=== PATIENT | male | born 1965 | race Caucasian/White ===

== ENCOUNTER 2019-04-19 09:47 | Outpatient (CLI) | payer BC ==
--- NOTE | 2019-04-19 10:10 | ULT ---
US Renal Bilateral STANDARD HISTORY: Chronic renal disease COMPARISON: None. FINDINGS: The right kidney measures 10.2 cm in length and the left kidney measures 11.4 cm in length. No focal mass or hydronephrosis is seen on either side. Cortical echogenicity and thickness is normal. No shadowing calculi are identified. The urinary bladder is unremarkable. Bilateral ureteral jets are visualized. IMPRESSION: Unremarkable exam.
== END 2019-04-19 09:48 | disposition home or self-care (01) ==
LOC: BICULT 09:47
PROVIDERS: ATTEND Internal Medicine Nephrology
DX: N18.3 Chronic kidney disease, stage 3 (moderate) (principal)
CPT/HCPCS: 36415; 76770; 80048; 81001

== ENCOUNTER 2024-02-05 18:35 | Inpatient (IN) | payer BC ==
[2024-02-05] MEDS ORDERED: Furosemide 40 MG (4 mL) VIAL ONE (19:43)
[2024-02-05 19:50] LABS: #Basophils 0.08 10x3/uL (0.0-0.2); %Eosinophils 1.1 % (0.0-10.0); %Lymphocytes 8.4 % (21.0-51.0); %Monocytes 8.4 % (0.0-10.0); %Neutrophils 80.7 % (42.0-75.0); Hematocrit 34.5 % (42.0-52.0); Hemoglobin 11.1 g/dL (14.0-18.0); Mean Corpuscular HGB CONC 32.2 g/dL (32.0-36.0); Mean Corpuscular Hemoglobin 28.8 pg (27.0-31.0); Mean Corpuscular Volume 89.4 fL (78.0-98.0); Mean Platelet Volume 11.5 fL (7.4-10.4); Platelet Count 190 10x3/uL (130-400); RBC Distribution Width 15.1 % (11.5-14.5); Red Blood Cell (RBC) Count 3.86 mill/uL (4.70-6.10)
[2024-02-05 20:13] LABS: Digoxin 0.48 ng/mL (0.8-2.0)
[2024-02-05 20:14] LABS: ALT (SGPT) 42 U/L (8-55); AST (SGOT) 28 U/L (5-34); Albumin 3.2 g/dL (3.5-5.0); Alkaline Phosphatase 146 U/L (40-110); Anion Gap 15 mmol/L (10-20); BUN (Urea Nitrogen) 21 mg/dL (8.4-25.7); Bilirubin, Total 0.6 mg/dL (0.2-1.2); Calc. Creatinine Clearance 0 mL/min (70-130); Calcium 8.6 mg/dL (7.8-10.44); Carbon Dioxide 24 mmol/L (22-29); Chloride 108 mmol/L (98-107); Estimated GFR 39; Globulin 3.8 g/dL (2.4-3.5); Glucose 179 mg/dL (70-105); Potassium 4.3 mmol/L (3.5-5.1); Sodium 143 mmol/L (136-145)
[2024-02-05 20:19] LABS: Troponin I 0.067 ng/mL (< 0.028)
[2024-02-05] MEDS ORDERED: Digoxin 0.5 MG/2 ML AMP ONE (20:36)
[2024-02-05] MEDS ORDERED: Ondansetron PF 4 MG/2 ML Vial IVP PRN (22:15)
[2024-02-05] MEDS ORDERED: Ondansetron ODT 4 MG TAB SL PRN (22:15)
[2024-02-05] MEDS ORDERED: Acetaminophen 325 MG TAB PO PRN (22:15)
[2024-02-05 23:31] LABS: Troponin I 0.083 ng/mL (< 0.028)
[2024-02-06 01:22] VITALS: BMI 28.3
[2024-02-06 02:56] LABS: Troponin I 0.101 ng/mL (< 0.028)
[2024-02-06 04:07] LABS: Magnesium 2.2 mg/dL (1.6-2.6)
[2024-02-06] MEDS ORDERED: Furosemide 40 MG (4 mL) VIAL ONE ×2 (06:28→13:51)
[2024-02-06] MEDS: Furosemide 40 MG (4 mL) VIAL SLOW IVP SCH (06:43)
[2024-02-06] MEDS ORDERED: Dextrose 5% in Water 1,000 ML IV PRN (11:05)
[2024-02-06] MEDS ORDERED: Glucagon 1 MG/ML KIT IM PRN (11:05)
[2024-02-06] MEDS ORDERED: Dextrose 50% Abboject 50 ML SYRINGE SLOW IVP PRN (11:05)
[2024-02-06] MEDS: Rivaroxaban 10 MG TAB PO SCH (16:46)
[2024-02-06] MEDS: Insulin Lispro 100 UNIT/ML 10 ML VIAL SC PRN (17:23)
[2024-02-06] MEDS: Atorvastatin Calcium 10 MG TAB PO SCH (20:43)
[2024-02-06] MEDS: Carvedilol 3.125 MG TAB PO SCH (20:43)
[2024-02-06] MEDS: Saxagliptin 2.5 MG TAB PO SCH (20:43)
[2024-02-07 06:13] LABS: #Basophils 0.06 10x3/uL (0.0-0.2); %Basophils 0.8 % (0.0-1.0); %Eosinophils 1.7 % (0.0-10.0); %Lymphocytes 9.3 % (21.0-51.0); %Monocytes 12.1 % (0.0-10.0); Hematocrit 31.2 % (42.0-52.0); Hemoglobin 9.9 g/dL (14.0-18.0); Mean Corpuscular HGB CONC 31.7 g/dL (32.0-36.0); Mean Corpuscular Hemoglobin 28.6 pg (27.0-31.0); Mean Corpuscular Volume 90.2 fL (78.0-98.0); Mean Platelet Volume 12.1 fL (7.4-10.4); Platelet Count 163 10x3/uL (130-400); RBC Distribution Width 14.9 % (11.5-14.5); Red Blood Cell (RBC) Count 3.46 mill/uL (4.70-6.10)
[2024-02-07 06:50] LABS: Anion Gap 12 mmol/L (10-20); BUN (Urea Nitrogen) 25 mg/dL (8.4-25.7); Calc. Creatinine Clearance 50 mL/min (70-130); Calcium 8.4 mg/dL (7.8-10.44); Carbon Dioxide 28 mmol/L (22-29); Chloride 104 mmol/L (98-107); Estimated GFR 42; Glucose 152 mg/dL (70-105); Potassium 4.1 mmol/L (3.5-5.1); Sodium 140 mmol/L (136-145)
[2024-02-07] MEDS: Digoxin 0.125 MG TAB PO SCH (08:02)
[2024-02-07] MEDS: Aspirin 81 mg Enteric Coated Tablet PO SCH (08:03)
[2024-02-07] MEDS ORDERED: FLU (Fluarix Triv) TS24-25(6MOS UP)/PF 45 MCG/0.5 ML Syringe IM ONE (09:00)
[2024-02-08 04:50] LABS: #Basophils 0.05 10x3/uL (0.0-0.2); %Basophils 0.9 % (0.0-1.0); %Eosinophils 2.4 % (0.0-10.0); %Monocytes 11.6 % (0.0-10.0); %Neutrophils 71.9 % (42.0-75.0); Hematocrit 32.8 % (42.0-52.0); Hemoglobin 10.6 g/dL (14.0-18.0); Mean Corpuscular HGB CONC 32.3 g/dL (32.0-36.0); Mean Corpuscular Hemoglobin 28.5 pg (27.0-31.0); Mean Corpuscular Volume 88.2 fL (78.0-98.0); Mean Platelet Volume 12.5 fL (7.4-10.4); Platelet Count 174 10x3/uL (130-400); RBC Distribution Width 14.9 % (11.5-14.5); Red Blood Cell (RBC) Count 3.72 mill/uL (4.70-6.10)
[2024-02-08 05:03] LABS: Anion Gap 11 mmol/L (10-20); BUN (Urea Nitrogen) 29 mg/dL (8.4-25.7); Calc. Creatinine Clearance 47 mL/min (70-130); Calcium 8.9 mg/dL (7.8-10.44); Carbon Dioxide 29 mmol/L (22-29); Chloride 102 mmol/L (98-107); Estimated GFR 38; Glucose 154 mg/dL (70-105); Potassium 4.3 mmol/L (3.5-5.1); Sodium 138 mmol/L (136-145)
[2024-02-08 05:04] LABS: Digoxin 1.43 ng/mL (0.8-2.0)
[2024-02-08] MEDS: Lisinopril 2.5 MG TAB PO SCH (08:24)
[2024-02-08] MEDS ORDERED: Rivaroxaban 15 MG TAB PO SCH (17:00)
[2024-02-08] MEDS: Rivaroxaban 15 MG TAB PO SCH (17:31)
[2024-02-09 05:21] LABS: #Basophils 0.04 10x3/uL (0.0-0.2); %Basophils 0.8 % (0.0-1.0); %Eosinophils 2.5 % (0.0-10.0); %Lymphocytes 11.6 % (21.0-51.0); %Monocytes 14.1 % (0.0-10.0); %Neutrophils 70.8 % (42.0-75.0); Hematocrit 30.4 % (42.0-52.0); Hemoglobin 9.8 g/dL (14.0-18.0); Mean Corpuscular HGB CONC 32.2 g/dL (32.0-36.0); Mean Corpuscular Hemoglobin 28.6 pg (27.0-31.0); Mean Corpuscular Volume 88.6 fL (78.0-98.0); Mean Platelet Volume 12.5 fL (7.4-10.4); Platelet Count 169 10x3/uL (130-400); RBC Distribution Width 14.6 % (11.5-14.5); Red Blood Cell (RBC) Count 3.43 mill/uL (4.70-6.10)
[2024-02-09 06:14] LABS: Anion Gap 13 mmol/L (10-20); BUN (Urea Nitrogen) 35 mg/dL (8.4-25.7); Calc. Creatinine Clearance 47 mL/min (70-130); Calcium 8.2 mg/dL (7.8-10.44); Carbon Dioxide 28 mmol/L (22-29); Chloride 101 mmol/L (98-107); Estimated GFR 39; Glucose 187 mg/dL (70-105); Potassium 3.8 mmol/L (3.5-5.1); Sodium 138 mmol/L (136-145)
[2024-02-09 12:32] VITALS: BP 136/64; TEMP 97.3
== END 2024-02-09 13:20 | disposition home or self-care (01) | DRG 291 ==
LOC: ERS 18:35 → ERHOLD 22:10 → 2NO 02-06 16:14
PROVIDERS: ADMIT Student in an Organized Health Care Education/Training Program; ATTEND Internal Medicine
DX: I13.0 Hypertensive heart and chronic kidney disease with heart failure and stage 1 through stage 4 chronic kidney disease, or unspecified chronic kidney disease (principal); I50.43 Acute on chronic combined systolic (congestive) and diastolic (congestive) heart failure; I24.89 Other forms of acute ischemic heart disease; N17.9 Acute kidney failure, unspecified; N18.30 Chronic kidney disease, stage 3 unspecified; I25.5 Ischemic cardiomyopathy; N40.0 Benign prostatic hyperplasia without lower urinary tract symptoms; E11.22 Type 2 diabetes mellitus with diabetic chronic kidney disease; I25.10 Atherosclerotic heart disease of native coronary artery without angina pectoris; E78.5 Hyperlipidemia, unspecified; Z95.1 Presence of aortocoronary bypass graft; Z79.899 Other long term (current) drug therapy; Z79.82 Long term (current) use of aspirin; Z79.84 Long term (current) use of oral hypoglycemic drugs; Z79.01 Long term (current) use of anticoagulants
CPT/HCPCS: 36415; 36416; 71045; 80048; 80053; 80162; 83735; 83880; 84484; 85025; 93005; 93798; 94760; 96374; 96375; J1160; J1815; J1940